=== PATIENT | female | born 1955 | race Caucasian/White ===

== ENCOUNTER → 2024-03-13 | Outpatient (CLI) | payer MEDICARE, BC, SELFPAY ==
--- NOTE | 2024-03-13 11:00 | XR_ITS ---
Examination: Ultrasound soft tissue extremity left ankle Exam date and time: March 13, 2024 1113 hours INDICATIONS: Left ankle anterior medial pain and swelling after falling 6 days ago TECHNIQUE AND FINDINGS: Grayscale sonographic images soft tissue left ankle No cystic or solid mass IMPRESSION: No cystic or solid mass If symptoms and signs persist, consider MRI ankle without contrast follow-up
--- NOTE | 2024-03-13 11:56 | XR_ITS ---
Examination: Foot, left, 3 views Technique: AP, oblique, lateral views foot, 3 views Date and time of exam: March 13, 2024 1214 hours INDICATIONS: Injury to the foot one week ago, foot pain. 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
== END | disposition home or self-care (01) ==
PROVIDERS: PCP Family Medicine; Referring Provider Nurse Practitioner Family; Visit Provider Nurse Practitioner Family
DX: M21.612 Bunion of left foot (principal); S99.912A Unspecified injury of left ankle, initial encounter; W19.XXXA Unspecified fall, initial encounter
CPT/HCPCS: 73630; 76882

== ENCOUNTER → 2024-11-09 | Outpatient (CLI) | payer MEDICARE, BC, SELFPAY ==
[2024-11-09 11:33] LABS: Basophils # (Auto) 0.0 Thou/mm3 (0.0-0.2); Basophils % (Auto) 1 % (0-2.5); Eosinophils # (Auto) 0.1 Thou/mm3 (0.0-0.5); Eosinophils % (Auto) 2 % (0-10); Hematocrit 39.8 % (36.0-46.0); Hemoglobin 13.5 g/dL (12.0-16.0); Immature Granulocytes Auto 0.01 Thou/mm3 (0.00-0.00); Lymphocytes # (Auto) 1.7 Thou/mm3 (1.0-4.8); Lymphocytes % (Auto) 32 % (10-50); Mean Corpuscular HGB Conc 33.9 g/dl (31.0-37.0); Mean Corpuscular Hemoglobin 30.1 pg (25.0-35.0); Mean Corpuscular Volume 89 fL (80-100); Monocytes # (Auto) 0.5 Thou/mm3 (0.0-0.8); Monocytes % (Auto) 11 % (0-12); Neutrophils # (Auto) 2.8 Thou/mm3 (1.8-7.7); Neutrophils % (Auto) 55 % (37-80); Nucleated Red Blood Cell # 0.00 Thou/mm3 (0.00-0.00); Nucleated Red Blood Cell % 0 /100 WBC (0); Platelet Count 228 Thou/mm3 (140-440); RDW Standard Deviation 43.2 fL (36.4-46.3); Red Blood Count 4.49 Miln/mm3 (4.00-5.20); White Blood Count 5.1 Thou/mm3 (3.6-11.0)
[2024-11-09 11:40] LABS: Glucose Estimated Average 94 mg/dL (80-131); Hemoglobin A1C 4.9 % Hgb (4.8-6.0)
[2024-11-09 11:51] LABS: Vitamin D 25 Hydroxy Total 29.5 ng/mL (7.3-40.2)
[2024-11-09 11:53] LABS: Alanine Aminotransferase 28 U/L (10-49); Albumin, Serum 4.6 gm/dL (3.4-4.8); Albumin/Globulin Ratio 2.2 (1.2-2.2); Alkaline Phosphatase 66 U/L (46-116); Anion Gap 8 (7-16); Aspartate Amino Transferase 29 U/L (0-34); BUN/Creatinine Ratio 15 Ratio (12-20); Bilirubin,Total 0.9 mg/dL (0.3-1.2); Blood Urea Nitrogen 9 mg/dL (9-23); Calcium 10.2 mg/dL (8.3-10.6); Calcium (Corrected) 10.2 mg/dL (8.5-10.1); Carbon Dioxide 29.1 mMol/L (20.0-31.0); Cardiac Risk Estimate 2.8 RATIO (3.7-5.6); Chloride 106 mMol/L (98-107); Cholesterol 241 mg/dL (132-200); Creatinine (Component) 0.6 mg/dL (0.6-1.3); Globulin 2.1 gm/dL (2.3-3.5); Glucose 92 mg/dL (74-106); HDL Cholesterol 86 mg/dL (40-60); LDL Cholesterol,Calculated 140 mg/dL (0-130); Osmolality,Calculated 283 (275-295); Potassium 4.2 mMol/L (3.4-5.1); Sodium 143 mMol/L (136-145); Thyroid Stimulating Hormone 1.45 uIU/mL (0.55-4.78); Total Protein 6.7 gm/dL (5.7-8.2); Triglycerides 75 mg/dL (30-150); eGFR > 60 See Note
[2024-11-09 11:56] LABS: T4 (Thyroxine) 9.6 mcg/dL (4.5-10.9)
== END | disposition home or self-care (01) ==
PROVIDERS: PCP Nurse Practitioner Family; Referring Provider Nurse Practitioner Family; Visit Provider Nurse Practitioner Family
DX: E78.5 Hyperlipidemia, unspecified (principal); R53.83 Other fatigue; E55.9 Vitamin D deficiency, unspecified
CPT/HCPCS: 36415; 80053; 80061; 82306; 83036; 84436; 84443; 85025

== ENCOUNTER 2024-12-12 20:32 | Emergency (ER) | payer MEDICARE, BC, SELFPAY ==
[2024-12-12 20:39] VITALS: BMI 47.3
[2024-12-12 21:15] VITALS: BP 159/92; PULSE 69; RESP 17; TEMP 36.6; O2SAT 97
--- NOTE | 2024-12-12 21:16 | XR_ITS ---
Examination: CT brain head without contrast. 2-D sagittal coronal reconstructions Date and time of exam: December 12, 2024, 1041 hours INDICATIONS: Ground-level fall today with injury to the head, head pain CTDI: vol (mGy): 43.4 DLP: (mGycm): 868 Technique: Multiple CT axial sections of the brain have been obtained, 5 mm slice thickness. Contrast has not been administered. 2-D sagittal, coronal reconstructions have been obtained Low dose protocols were performed. One or more of the following dose reduction techniques were used; automated exposure control, adjustment of the mA and/or KV according to patient size, use of iterative reconstruction technique. Findings: No significant ventricular enlargement. Intra-axial or extra-axial hemorrhage density is not seen. No mass effect or midline shift Basal cisterns are not remarkable. Fourth ventricle is midline. Cranial vault intact. Impression: Negative for acute hemorrhage, mass effect or midline shift
--- NOTE | 2024-12-12 21:16 | XR_ITS ---
Examination: CT cervical spine without contrast 2-D sagittal reconstructions 2-D coronal reconstructions 3-D reconstructions. Exam date and time: December 12, 2024, 1042 hours INDICATIONS: Ground-level fall today with injury of the neck, neck pain CTDI:vol (mGy) 11.0 DLP: (mGycm) 240 Technique: Multiple 2 mm axial sections of the cervical spine have been obtained. The coronal and sagittal reconstructions have been obtained. 3-D reconstructions have been obtained. Low dose protocols were performed. One or more of the following dose reduction techniques were used; automated exposure control, adjustment of the mA and/or KV according to patient size, use of iterative reconstruction technique. Findings: Axial sections demonstrate intact base of the skull. C1 exhibit satisfactory relationship to the odontoid. No acute cervical vertebral body fracture seen. Alignment posterior spinous processes satisfactory. Impression: No acute cervical fracture.
--- NOTE | 2024-12-13 01:03 | PD.EDHEAD ---
ED Head Injury RME/HPI General Chief complaint: Head Injury Stated complaint: HEAD AND NECK INJURY Time Seen by Provider: 12/12/24 21:00 Source: patient and family Arrival date/time: 12/12/24 20:32 This is a case of 68-year-old female with history of atrial fibrillation but not taking any blood thinner at the time of exam anxiety came in in the emergency room due to fall injury history of present illness started 1 hour prior to arrival in the emergency room patient was standing up on a footstool accidentally lost balance and fell and hit his head and neck on a toilet bowl patient sustained a contusion on the scalp occipital area with some abrasion but no open wound patient denies any loss of consciousness denies any other injury denies any chest abdomen or back injury no pelvic injury also Limitations: no limitations Related Data Home Medications ?Medication ?Instructions ?Recorded ?Confirmed fluticasone propionate 50 2 spray intranasal QDAY 11/13/18 11/13/18 mcg/actuation nasal spray,suspension (Flonase Allergy Relief) gabapentin 300 mg capsule 300 mg PO BID PRN Muscle Spasm 11/13/18 11/13/18 Previous Rx's ?Medication ?Instructions ?Recorded alprazolam 0.5 mg tablet (Xanax) 0.5 mg PO BID PRN anxiety #10 tabs 03/29/18 amiodarone 200 mg tablet 200 mg PO BID #60 tabs 03/29/18 apixaban 2.5 mg tablet (Eliquis) 5 mg (2 x 2.5 mg) PO BID #60 tabs 03/29/18 Allergies Allergy/AdvReac Type Severity Reaction Status Date / Time lidocaine Allergy Severe SHOCK Verified 12/12/24 20:44 procaine Allergy Severe SHOCK Verified 12/12/24 20:44 bee venom protein (honey bee) Allergy Intermediate Hives Verified 12/12/24 20:44 Review of Systems Review of Systems Systems Reviewed: All systems reviewed, normal except as documented Constitutional Constitutional: Reports system reviewed and no additional complaints, except as documented, Reports as per HPI, Denies headache(s) and Denies weakness Eyes Eyes: Reports system reviewed and no additional complaints, except as documented, Reports as per HPI and Denies blurry vision ENT Ears, Nose, Mouth, and Throat: Reports system reviewed and no additional complaints, except as documented, Reports as per HPI, Denies dizziness, Denies headache(s), Reports neck pain and Denies vertigo Cardiovascular Cardiovascular: Reports system reviewed and no additional complaints, except as documented, Reports as per HPI and Denies syncope Respiratory Respiratory: Reports system reviewed and no additional complaints, except as documented and Reports as per HPI Gastrointestinal Gastrointestinal: Reports system reviewed and no additional complaints, except as documented and Reports as per HPI Musculoskeletal Musculoskeletal: Reports system reviewed and no additional complaints, except as documented, Reports as per HPI, Denies abnormal gait, Denies atrophy, Denies back pain, Denies deformity, Denies joint swelling, Denies limited range of motion, Denies loss of height, Denies muscle cramps, Denies muscle weakness, Denies myalgias, Reports neck pain, Denies numbness, Denies radiating pain into limb, Denies stiffness and Denies tingling Neurologic Neurologic: Reports system reviewed and no additional complaints, except as documented, Denies abnormal gait, Denies confusion, Denies convulsions, Denies dizziness, Denies headache(s), Denies numbness, Denies syncope, Denies tingling, Denies vertigo and Denies weakness Psychiatric Psychiatric: Denies confusion Past Medical History Past Medical History NEUROLOGIC: Positive Migraine CARDIAC: Positive Cardiac Disorders, Atrial Fibrillation and Hypertension (DURING ); Negative Congestive Heart Failure RESPIRATORY: Negative Chronic Obstructive Pulmonary Disease (COPD) GENITOURINARY: Negative Renal Disease REPRODUCTIVE: Positive Previous Pregnancies () MUSCULOSKELETAL: Positive Arthritis ENT: Positive Cataracts (BILATERAL) ENDOCRINE: Negative Diabetes Mellitus Type 1 or Diabetes Mellitus Type 2 PSYCHO/SOCIAL: Positive Anxiety OTHER HISTORY: Positive Hospitalization, Chicken Pox, Measles and Mumps Family History FAMILY HISTORY: Positive Family Cardiac Disorders (SISTER(CT)) Surgical History SURGICAL: Positive Eye Surgery (BILATERAL CATARACTS WITH IMPLANTS), Tonsillectomy and Tubal Ligation Social History SMOKING STATUS: Never smoker ED Exam General Limitations: Present no limitations General appearance: Present alert, in no apparent distress and other (Patient is awake alert oriented not in distress nontoxic looking well-hydrated well-nourished) Head Head exam: Present atraumatic and other (Patient sustained a 1 cm scalp contusion occipital area with some abrasion no crepitation no deformity no laceration) Eye Eye exam: Present normal appearance, PERRL, EOMI and other (PERRL EOM intact normal conjunctiva no papilledema no hyphema) ENT ENT exam: Present normal exam, normal oropharynx, mucous membranes moist and other Neck Neck exam: Present normal inspection, full ROM, trachea midline, tenderness (Mild tenderness on the cervical area but no crepitation no deformity no swelling no redness no paraspinal no paravertebral tenderness leg raise exam is normal) and other (Mild tenderness to cervical area no crepitation no deformity no redness no cellulitis no paraspinal no paravertebral tenderness leg raise exam is negative ROM is limited due to pain but no stiffness); Absent meningismus, lymphadenopathy or thyromegaly Chest Chest inspection: Present normal inspection and symmetric chest wall rise; Absent tenderness Respiratory Respiratory exam: Present normal lung sounds bilaterally; Absent respiratory distress, wheezes, stridor, accessory muscle use or prolonged expiratory phase Cardiovascular Cardiovascular exam: Present regular rate, normal rhythm and normal heart sounds; Absent bradycardia, tachycardia, irregular rhythm, systolic murmur or diastolic murmur Abdominal Exam Abdominal exam: Present soft and normal bowel sounds; Absent distention, tenderness, guarding, rebound, rigidity, hyperactive bowel sounds, hypoactive bowel sounds or organomegaly Extremities Exam Extremities exam: Present normal inspection and full ROM Back Exam Back exam: Present normal inspection and full ROM; Absent tenderness, CVA tenderness (R), CVA tenderness (L), muscle spasm, paraspinal tenderness, vertebral tenderness, rashes, sciatic notch tenderness (R), sciatic notch tenderness (L), straight leg raise (R) or straight leg raise (L) Neurological Exam Neurological exam: Present alert, oriented X3, CN II-XII intact, normal gait, reflexes normal and other (Patient is awake alert oriented x 4 no focal deficit GCS 15/15 steady gait memory intact no slurring speech no facial syndrome CN II to XII is normal motor or sensory reflex were normal in all extremities negative Babinski); Absent motor sensory deficit Psychiatric Psychiatric exam: Present normal affect and normal mood Skin Skin exam: Present warm, dry, intact, normal color and other (Contusion and abrasion) Course Quality Measures none Orders Category Date Time Status CT cervical spine wo con Stat Exams 12/12/24 21:[address] head/brain wo con Stat Exams 12/12/24 21:16 Completed Acetaminophen Tab [Tylenol ES Tab] Med 12/13/24 01:02 Discontinued 1,000 mg PO X1 ONE Vital Signs Vital signs: Vital Signs Temperature 97.8 F 12/12/24 21:15 Pulse Rate 69 12/12/24 21:15 Respiratory Rate 17 12/12/24 21:15 Blood Pressure 159/92 H 12/12/24 21:15 Pulse Oximetry (%) 97 12/12/24 21:15 Oxygen Delivery Method Room Air 12/12/24 21:15 Oxygen saturation is 97% in room air Head Injury MDM Narrative MDM Narrative:: This is a case of 68-year-old female with history of atrial fibrillation but not taking any blood thinner at the time of exam anxiety came in in the emergency room due to fall injury history of present illness started 1 hour prior to arrival in the emergency room patient was standing up on a footstool accidentally lost balance and fell and hit his head and neck on a toilet bowl patient sustained a contusion on the scalp occipital area with some abrasion but no open wound patient denies any loss of consciousness denies any other injury denies any chest abdomen or back injury no pelvic injury also physical examination patient is awake alert oriented not in distress nontoxic looking not in distress neurological exam is normal awake alert oriented x 4 no focal deficit GCS 15/15 steady gait memory intact CN II to XII is normal no slurring speech no facial droop motor or sensory reflex are all normal in all extremities negative Babinski PERRL EOM intact normal conjunctiva no palpable edema HEENT exam is normal mild tenderness cervical area no crepitation no deformity no paraspinal no paravertebral tenderness leg raise exam is negative ROM is limited due to pain but no stiffness the rest of the physical examination neurological exam is normal and unremarkable CT scan of the head normal no infarct no bleeding CT scan of the cervical no fracture based on my physical examination and history patient symptoms suggestive of head injury scalp contusion with abrasion and cervical strain head injury precaution was discussed with the patient she was informed for any changes of sensorium worsening symptoms or any emergent concerns such as headache nausea vomiting dizziness blurring of vision numbness weakness tingling sensation unsteady gait memory loss confusion return to the emergency room immediately or call 911 she was also follow-up with PCP in 2 days for reevaluation Tylenol [id number] for pain mupirocin ointment for the abrasion is advised Patient was discharged with comfortable condition walking with stable gait. Patient verbalized no further complains explained diagnosis and answered patient question. Patient is comfortable with the proposed management plan including the need to follow up with his/her primary care physician and any specialist if applicable Discussed patient for any urgent condition or worsening sx, He/She needed to go to emergency room immediately or call 911. Patient acknowledge the responsibility to follow up as instructed and to monitor her/his symptoms. For any persistence of the symptoms for more than 3-5 days return precaution advised. Discussed the result of the test and was given printed discharge instruction Patient data External records reviewed:: [facility] previous records Clinical information provided by:: patient Social determinants that could affect healthcare access:: none Patient has the following chronic illnesses:: None How is presenting disease/condition affected by chronic disease/condition?: no chronic disease Evaluation data The following diagnostics were reviewed and interpreted by me:: radiology exam(s) Lab and/or radiology exams considered but not ordered:: Reviewed Interpretation Summary: Reviewed Medications / Prescriptions Medications or Prescriptions considered but not ordered:: Given Medication administrations:: Medication Administration History Discontinued Medications Acetaminophen (Acetaminophen 500 Mg Tablet) 1,000 mg PO X1 ONE Stop: 12/13/24 01:03 PST Given Consultations Consultation(s) initiated? (list below): No Diagnosis Differential diagnosis head injury: concussion without loss of consciousness and closed head injury Most likely diagnosis given after review of the tests above:: Head injury scalp contusion with abrasion cervical sprain Admission Indicated Admission indicated?: not indicated Explain why admission is indicated or not indicated:: Not indicated Admission Request Was there a request for admission?: No Admission Attestation Admission request attestation: Not indicated Disposition Plan Disposition Plan: Discharge Discharge Attestation Discharge Attestation: The patient and all family members were given an opportunity to ask questions and understood the discharge instructions. Discharge instructions specifically effects, indications for sooner follow up or return to the emergency department, and the expected course of current diagnosis. Patient condition: Stable Discharge Plan Plan Patient Disposition: HOME (Self Care) Patient condition on transfer: Stable Prescriptions/Referrals Prescriptions/Med Rec: No Action amiodarone 200 mg Tablet 200 mg PO BID Qty: 60 0RF Eliquis 2.5 mg Tablet 5 mg PO BID Qty: 60 0RF alprazolam [Xanax] 0.5 mg tablet 0.5 mg PO BID PRN (Reason: anxiety) Qty: 10 0RF gabapentin 300 mg capsule 300 mg PO BID PRN (Reason: Muscle Spasm) fluticasone propionate [Flonase Allergy Relief] 50 mcg/actuation [place],Suspension 2 spray INTRANASAL QDAY Referrals: Rose Ramos MD [Primary Care Provider, Family Practice] - In 1 week Problem List Clinical Impression: Head injury, Contusion of scalp, Abrasion, Cervical strain Patient/Caregiver Discharge Instructions Education Materials: ED Abrasions, ED Scalp Contusion, ED Head Injury (Adult), ED Neck Sprain or Strain Additional Instructions: Follow-up with your primary care physician in 2 days for reevaluation worsening symptoms or any emergent concerns such as headache nausea vomiting dizziness blurring of vision numbness weakness tingling sensation unstable gait memory loss return to the emergency room immediately or call 911 you can continue to take your medication for pain as needed mupirocin [id number] for the abrasion is also advised ice pack every 2 hours for the contusion for 24 hours is also advised Print Language: Cameroonian Stand Alone Forms: [facility] Award Info., Patient Portal Info Letter PA/ELIAZAR Supervising Physician PA/ELIAZAR Supervising Physician: Dr. Gutierrez
== END 2024-12-13 01:08 | disposition home or self-care (01) ==
PROVIDERS: Emergency Provider Nurse Practitioner Family; PCP Family Medicine
DX: S00.03XA Contusion of scalp, initial encounter (principal); S16.1XXA Strain of muscle, fascia and tendon at neck level, initial encounter; W01.10XA Fall on same level from slipping, tripping and stumbling with subsequent striking against unspecified object, initial encounter; Z79.01 Long term (current) use of anticoagulants; I48.91 Unspecified atrial fibrillation; S00.01XA Abrasion of scalp, initial encounter
CPT/HCPCS: 70450; 72125; 99282